=== PATIENT | male | born 2000 | race Two or more races ===

== ENCOUNTER 2021-07-10 11:37 | Emergency (ER) | payer OTHER, SELFPAY ==
[2021-07-10 13:58] VITALS: BP 151/91; PULSE 83; RESP 18; TEMP 36.9; O2SAT 100; BMI 15.0
[2021-07-10 14:04] LABS: UTC Strep Screen (Rapid) Negative (Negative)
--- NOTE | 2021-07-10 14:12 | HMH.EDUTC ---
[facility] [place] Clinical Impression: Strep sore throat Disposition: Home, Self-Care Condition on Discharge: Good Instructions: DI for Strep Throat Additional Instructions: Start antibiotics today be sure to take it as ordered with the full length of time although you should start feeling better in 24-48 hours. Change toothbrush and toothpaste 24-48 hours after starting antibiotics Tylenol or Motrin as needed for fever or pain Encourage fluids, water, Gatorade, Powerade, try cold fluids, popsicles, ice cream will make it feel better You are contagious for 24 hours. Avoid kissing anyone, no eating or drinking after anyone. You are contagious. Follow-up the ER for new or worsening symptoms or no noticeable improvement over the next 24-48 hours. Follow-up with PCP this week. Prescriptions: Azithromycin [Zithromax 250mg tab] 250 mg PO DIRECTED #6 tab Prescription Printed Referrals: Dale Eden MD [Primary Care Provider] - Time of Disposition: 14:16 Medical Decision Making - Cory Inquiry Pt receiving controlled substance: No Vital Signs: 07/10/21 13:58 Temperature 98.5 F Temperature Source Oral Pulse Rate [Right Radial] 83 Respiratory Rate 18 Blood Pressure [Right Arm] 151/91 H Blood Pressure Mean [Right Arm] 111 Blood Pressure Source [Right Arm] Automatic Cuff Blood Pressure Position [Right Arm] Sitting 02 Sat by Pulse Oximetry 100 Oxygen Delivery Method Room Air - Lab Data Lab Results 07/10/21 14:03: Strep Scn Rapid Clinic Negative Orders (Tests/Meds): ORDERS Category Date Time Status Strep Screen Confirmation Stat Micro 07/10/21 14:03 [place] [facility] [place] - General Chief complaint: [facility] Stated complaint: sore throat Time Seen by Provider: 07/10/21 14:12 Mode of Arrival: Ambulatory Source of Information: Patient Limitations: No Limitations Description of Symptoms (Recalled from Triage Doc. by RN): Pt states that he has a sore throat. HEENT Symptoms (Recalled from RN notes): Yes Resp Symptoms (Recalled from RN notes): No Skin Symptoms (Recalled from RN notes): No MS Symptoms (Recalled from RN notes): No Functional Status (Recalled from RN notes): n/a - History of Present Illness Provider Complaint: 20 yr old male presents for sore throat for 2 days - Related Data Previous Rx's Medication Instructions Recorded dextroamphetamine-amphetamine 20 20 mg PO DAILY #30 tab 02/17/20 mg tablet trazodone 50 mg tablet 50 mg PO QHS PRN #30 tab 02/17/20 Azithromycin [Zithromax 250mg 250 mg PO DIRECTED #6 tab 07/10/21 tab] Allergies Allergy/AdvReac Type Severity Reaction Status Date / Time codeine [CODEINE] Allergy Unknown Verified 09/10/19 15:09 - Worker's Comp Is this a Worker's Comp case?: No [facility] History - Hepatitis A Screen Drug use history?: No High risk sexual behaviors?: No History of sexually transmitted infection?: No Currently employed?: No Childcare worker?: No Do you have indoor plumbing?: Yes Do you have electricity?: Yes Attestation statement:: This patient has been screened for Hepatitis A risk factors. I have reviewed the patient's past medical history: Yes Medical History: Denies:: Cancer, Diabetes Mellitus Type 1, Diabetes Mellitus Type 2, MRSA Comment: he is scared of needles Amputation: No Fractures: No - Social History Smoking Status: Never smoker Tobacco Type: smokeless tobacco Alcohol Intake: never Substance Use Type: denies use Occupational Status: unemployed ROS Obtained: Yes Systems reviewed as appropriate & no additional complaints - Constitutional Constitutional: Reports system reviewed and no additional complaints, except as docu, Denies fever(s) - Eyes Eyes: Reports system reviewed and no additional complaints, except as docu, Denies blurry vision - ENT Ears, Nose, Mouth, and Throat: Reports system reviewed and no additional complaints, except as docu, Reports sore thr
[2021-07-10 14:23] VITALS: BP 151/91; PULSE 83; RESP 18; TEMP 36.9; O2SAT 100
== END 2021-07-10 14:24 | disposition home or self-care (01) ==
PROVIDERS: Emergency Provider Nurse Practitioner Family; PCP Family Medicine
DX: J02.0 Streptococcal pharyngitis (principal)
CPT/HCPCS: 87880; 99202; G0463

== ENCOUNTER 2022-12-31 18:22 | Emergency (ER) | payer OTHER, SELFPAY ==
[2022-12-31 18:24] VITALS: BP 162/93; PULSE 97; RESP 18; TEMP 36.8; O2SAT 98; BMI 33.0
--- NOTE | 2022-12-31 18:26 | HMH.EDGENADL ---
Discharge Plan Disposition Patient Disposition: Home, Self-Care Condition: Good Prescriptions Prescriptions: New ibuprofen 600 mg tablet 600 mg PO Q6H PRN (Reason: pain) Qty: 20 0RF No Action dextroamphetamine-amphetamine 20 mg tablet 20 mg PO DAILY Qty: 30 0RF trazodone 50 mg tablet 50 mg PO QHS PRN (Reason: sleep) Qty: 30 0RF azithromycin 250 MG tablet 250 mg PO DIRECTED Qty: 6 0RF Rx Instructions: Take two (2) tablets on day #1, then one (1) tablet day #2 thru #5 Referrals Follow up/Referrals: Provider,Referral, [Referring] - See instructions Sirena Lopez DPM [Staff Physician] - See instructions (right great toe fracture) Activity Restrictions/Add. Instructions Additional Instructions/Restrictions: You have been evaluated for injury to the right toe, diagnosed with a fracture. Please keep splint in place. Use a hard soled shoe. Follow-up with podiatry for wound check. Take Tylenol and Motrin for pain. Keep your foot elevated. Clinical Impressions Clinical Impression: Fracture of toe Instructions Patient Instructions: DI for Toe Fracture Discharge ED Provider: Zoë Jones Adult HPI General Chief complaint: Extremity Injury, Lower Stated complaint: AO, 12/31,right foot- poss broken toe Time Seen by Provider: 12/31/22 18:26 History of Present Illness HPI narrative: 22-year-old male presenting to the emergency department with injury to the right great toe. Accident happened just prior to arrival. He accidentally kicked a wall. He had immediate pain in the great toe on the right foot. Is starting to see bruising. Pain is described as sharp, constant. Hurts to walk. No other injuries in the accident. No pain in the foot or ankle. No numbness, weakness, tingling. No injury to the nail. No medications prior to arrival. Related Data Previous Rx's Medication Instructions Recorded dextroamphetamine-amphetamine 20 20 mg PO DAILY ADHD #30 tabs 02/17/20 mg tablet trazodone 50 mg tablet 50 mg PO QHS PRN sleep #30 tabs 02/17/20 azithromycin 250 mg tablet 250 mg PO DIRECTED #6 tabs 07/10/21 ibuprofen 600 mg tablet 600 mg PO Q6H PRN pain #20 tabs 12/31/22 Allergies Allergy/AdvReac Type Severity Reaction Status Date / Time codeine [CODEINE] Allergy Unknown Verified 09/10/19 15:09 [facility] Disclaimer: The information contained in this section may have been updated after the patient was seen, as this information can be updated by other users. Social History Smoking Status: Never smoker alcohol intake: never substance use type: denies use current occupational status: unemployed Travel in the last 8 weeks: None number of children: 0 ROS Obtained: Yes All systems reviewed & no additional complaints except as documented Constitutional Constitutional: Denies fever(s) Gastrointestinal Gastrointestingal: Denies nausea or vomiting Musculoskeletal Musculoskeletal: Denies back pain, Denies numbness, Reports stiffness and Denies tingling Integumentary/Breasts Skin/Breast: Denies redness, Denies skin ulcer and Denies sores Neurologic Neurologic: Denies numbness and Denies tingling Hematologic/Lymphatic Henatologic/Lymphatic: Denies easy bleeding and Denies easy bruising Physical Exam General General appearance: alert and in no apparent distress Respiratory Respiratory exam: Present normal lung sounds bilaterally Cardiovascular Cardiovascular exam: Present regular rate Extremities Exam Extremities exam: Present tenderness (To palpation over the right great toe. Swelling and deformity present. No breaks in the skin.) Neurological Exam Neurological exam: Present alert and oriented X3 Skin Skin exam: Present warm and dry Medical Decision Making Medical Records Medical records reviewed: Yes I reviewed the patient's medical records. Cory Inquiry Pt receiving controlled substance: No Vital Signs: 12/31/22 18:24 12/31/22 19:
--- NOTE | 2022-12-31 18:33 | XR_ITS ---
PROCEDURE INFORMATION: Exam: XR Right Toe(s) Exam date and time: 12/31/2022 6:31 PM Age: 22 years old Clinical indication: Pain; Toes; Right; Additional info: Trauma TECHNIQUE: Imaging protocol: Radiologic exam of the right toes. Views: Minimum 2 views. COMPARISON: No relevant prior studies available. FINDINGS: Bones/joints: There is a mildly displaced fracture of the distal aspect of the proximal phalanx of the right great toe with mild angulation deformity laterally. Soft tissues: Mild surrounding soft tissue swelling. IMPRESSION: There is a mildly displaced fracture of the distal aspect of the proximal phalanx of the right great toe with mild angulation deformity laterally.
[2022-12-31 19:00] VITALS: BP 143/84; PULSE 98; O2SAT 98
--- NOTE | 2022-12-31 19:06 | XR_ITS ---
PROCEDURE INFORMATION: Exam: XR Right Toe(s) Exam date and time: 12/31/2022 7:06 PM Age: 22 years old Clinical indication: Screening exam; Post reduction right great toe. ; Additional info: Great toe, post reduction TECHNIQUE: Imaging protocol: Radiologic exam of the right toes. Views: Minimum 2 views. COMPARISON: CR XR TOE RT MIN 2V 12/31/2022 6:31 PM FINDINGS: Bones/joints: Status post reduction of the fracture of the distal aspect of the proximal phalanx of the right great toe with now near anatomic alignment. The fracture line extends into the interphalangeal joint of the right toe. Soft tissues: Mild persistent surrounding soft tissue swelling. IMPRESSION: Near anatomic alignment of the fracture of the distal aspect of the proximal phalanx of the right great toe after reduction. Fracture line does extend intra-articularly to the interphalangeal joint.
--- NOTE | 2022-12-31 19:35 | PC.NURSE ---
Rounded on pt. No needs voiced.
[2022-12-31 19:40] VITALS: BP 142/89; PULSE 79; RESP 19; TEMP 36.8; O2SAT 98
== END 2022-12-31 19:48 | disposition home or self-care (01) ==
PROVIDERS: Emergency Provider Emergency Medicine; PCP Family Medicine
DX: S92.411A Displaced fracture of proximal phalanx of right great toe, initial encounter for closed fracture (principal); W22.09XA Striking against other stationary object, initial encounter
CPT/HCPCS: 28495; 73660; 99283; 99284